=== PATIENT | female | born 2000 ===

== ENCOUNTER 2024-11-18 18:05 | Outpatient (CLI) | payer OTHER, SELFPAY | END 2024-11-18 18:06 | disposition home or self-care (01) | PROVIDERS: Visit Provider Student in an Organized Health Care Education/Training Program | DX: S09.90XA Unspecified injury of head, initial encounter (principal); V03.09XA Pedestrian with other conveyance injured in collision with car, pick-up truck or van in nontraffic accident, initial encounter; Y92.414 Local residential or business street as the place of occurrence of the external cause; Y93.55 Activity, bike riding | CPT/HCPCS: A0998 ==